=== PATIENT | male | born 1955 | race Two or more races ===

== ENCOUNTER 2023-03-11 03:06 | Emergency (ER) | payer MEDICARE, OTHER ==
[~2023-03-11] VITALS: Ht 188 cm; Wt 114.8 kg
--- NOTE | 2023-03-11 03:48 | NUR ---
BIB , c/o RT shoulder muscle pain, on pain meds/muscle relaxant, no relief denies any trauma. [id number].
[2023-03-11] MEDS ORDERED: PRED50TA PO (03:53)
[2023-03-11] MEDS ORDERED: KETOROLAC TROMETHAMINE INJ 60 MG/2 ML VIAL IM ONE ×2 (03:58→04:00)
[2023-03-11 04:05] VITALS: BP 139/80; TEMP 98.1; O2SAT 99
--- NOTE | 2023-03-11 04:05 | NUR ---
Patient discharged to home in stable condition. Written and verbal after care instructions given. Patient verbalizes understanding of instruction.
== END 2023-03-11 04:08 | disposition home or self-care (01) ==
LOC: ER 03:09
DX: M25.511 Pain in right shoulder (principal); Z79.899 Other long term (current) drug therapy
CPT/HCPCS: 99283; 96372; J1885